=== PATIENT | female | born 1995 | race Caucasian/White ===

== ENCOUNTER 2017-01-26 09:37 | Emergency (ER) | payer OTHER ==
[~2017-01-26] VITALS: Ht 157.5 cm; Wt 85.0 kg
[~2017-01-26 09:37] MED LIST: CIPR500T4 PO; CYCL-319 PO; NAPR-260 PO; TAMS0.4C2 PO
[2017-01-26 09:39] VITALS: Ht 157.5 cm; Wt 85.0 kg
[2017-01-26 10:55] LABS: BASOPHIL # 0.1 10^3/ul (0.0-0.1); BASOPHILS % 0.4 % (0.0-2.0); EOSINOPHILS # 0.1 10^3/ul (0.0-0.5); EOSINOPHILS % 0.9 % (0.0-7.0); HEMATOCRIT 41.1 % (37.0-47.0); HEMOGLOBIN 13.5 g/dl (12.0-16.0); LYMPHOCYTES # 2.2 10^3/ul (0.8-2.9); LYMPHOCYTES % 18.7 % (18.0-55.0); MEAN CORPUSCULAR HEMOGLOBIN 27.6 pg (29.0-33.0); MEAN CORPUSCULAR HGB CONC 32.8 g/dl (32.0-37.0); MONOCYTE # 0.9 10^3/ul (0.3-0.9); MONOCYTES % 7.4 % (0.0-13.0); NEUTROPHIL # 8.4 10^3/ul (1.6-7.5); NEUTROPHILS % 72.2 % (30.0-74.0); PLATELET COUNT 266 10^3/UL (140-415); RED BLOOD COUNT 4.89 10^6/ul (4.20-5.40); RED CELL DISTRIBUTION WIDTH 13.2 % (11.5-14.5); WHITE BLOOD COUNT 11.6 10^3/ul (4.8-10.8)
[2017-01-26 10:59] LABS: ADD UMIC NO; UR ASCORBIC ACID NEGATIVE (NEGATIVE); UR BILIRUBIN (Dip) NEGATIVE (NEGATIVE); UR BLOOD (Dip) NEGATIVE (NEGATIVE); UR CLARITY CLEAR (CLEAR); UR COLOR YELLOW (YELLOW); UR GLUCOSE (Dip) NEGATIVE (NEGATIVE); UR KETONES (Dip) NEGATIVE (NEGATIVE); UR LEUKOCYTE ESTERASE (Dip) NEGATIVE Leu/ul (NEGATIVE); UR NITRITE (Dip) NEGATIVE (NEGATIVE); UR SPECIFIC GRAVITY (Dip) 1.024 (1.003-1.030); UR TOTAL PROTEIN (Dip) NEGATIVE (NEGATIVE); UR UROBILINOGEN (Dip) 1+ mg/dL (NEGATIVE)
--- NOTE | 2017-01-26 11:15 | RADRPT ---
PROCEDURE: XR Chest. CLINICAL INDICATION: Abdominal pain. TECHNIQUE: Single frontal view. COMPARISON: None. FINDINGS: The lungs are clear. The heart size is normal. There is no pleural effusion. There is no pneumothorax. IMPRESSION: 1. Normal chest radiograph. RPTAT: QQ .Jin Rivera MD, Date Time Electronically viewed and signed by .Jin Rivera MD, on 01/26/2017 11:15 .R/
[2017-01-26 11:25] LABS: ALBUMIN 4.2 g/dl (3.3-4.9); ALBUMIN/GLOBULIN RATIO 1.16; BILIRUBIN,INDIRECT 0.8 mg/dl (0-1.1); BILIRUBIN,TOTAL 0.8 mg/dl (0.2-1.3); CALCIUM 9.9 mg/dl (8.4-10.2); CREATININE 0.77 mg/dl (0.44-1.00); POTASSIUM 4.1 mmol/L (3.5-5.1); TOTAL PROTEIN 7.8 g/dl (6.1-8.1)
[2017-01-26] MEDS ORDERED: ONDANSETRON (ODT) 4 MG TAB ODT STA (11:44)
[2017-01-26] MEDS ORDERED: ONDA8TAB14 PO (11:46)
[2017-01-26] MEDS ORDERED: AZIT250T94 PO (11:46)
[2017-01-26] MEDS ORDERED: ACET500C5 PO (11:46)
--- NOTE | 2017-01-26 12:01 | ERD ---
ER Documentation Chief Complaint Chief Complaint Complains of cough colds and flu symptoms HPI This 21-year-old female presents with multiple complaints. She has had a sore throat congestion for last month. She is coughing as well. She also has intermittent vomiting nonbilious nonbloody. She denies abdominal pain except for intermittent occasional sharp pains but denies current pain. She is having bowel movements but has a history of constipation. She states that he she is lost more than 20 pounds over these last 2 months. She has frequent urination and feels dehydrated as well. ROS All systems reviewed and are negative except as per history of present illness. Medications Home Meds Active Scripts Azithromycin* (Zithromax*) 250 Mg Tablet, 250 MG PO .ZPACK DIRECTED, #6 TAB TAKE 500 MG (2 TABS) THE FIRST DAY THEN 250 MG (1 TAB) DAYS 2-5 Prov:LOGAN LUNDBERG MD 01/26/17 Acetaminophen* (Tylophen*) 500 Mg Capsule, 1 CAP PO Q6H Y for PAIN AND OR ELEVATED TEMP, #15 CAP Prov:LOGAN LUNDBERG MD 01/26/17 Ondansetron (Ondansetron Odt) 8 Mg Tab.rapdis, 8 MG PO Q6H Y for NAUSEA AND/OR VOMITING, #8 TAB Prov:LOGAN LUNDBERG MD 01/26/17 Ciprofloxacin Hcl* (Ciprofloxacin Hcl*) 500 Mg Tablet, 500 MG PO BID for 10 Days , TAB Prov:MELONIE ABBASI PA-C 06/03/15 Tamsulosin Hcl* (Tamsulosin Hcl*) 0.4 Mg Cap.er.24h, 0.4 MG PO DAILY, #30 CAP Prov:MELOINE ABBASI PA-C 06/03/15 Naproxen* (Naprosyn*) 500 Mg Tablet, 500 MG PO BID Y for PAIN AND/OR INFLAMMATION, #30 TAB Prov:GEORGE RYAN PA-C 04/03/15 Cyclobenzaprine Hcl* (Cyclobenzaprine Hcl*) 10 Mg Tablet, 10 MG PO TID, #20 TAB Prov:GEORGE RYAN PA-C 04/03/15 Allergies Allergies: Coded Allergies: No Known Allergy (Unverified , 01/07/14) PMhx/Soc History of Surgery: No Anesthesia Reaction: No Hx Neurological Disorder: No Hx Respiratory Disorders: No Hx Cardiac Disorders: No Hx Psychiatric Problems: No Hx Miscellaneous Medical Probl: No Hx Alcohol Use: No Hx Substance Use: No Hx Tobacco Use: No Physical Exam Vitals Vital Signs Date Time Temp Pulse Resp B/P Pulse Ox O2 Delivery O2 Flow Rate FiO2 01/26/17 09:39 98.0 92 20 122/74 99 Physical Exam Const: [], [id number]. Head: Atraumatic Eyes: Normal Conjunctiva ENT: Normal External Ears, Nose and Mouth. TMs normal. Slight postnasal drip. Neck: Full range of motion..~ No meningismus. Resp: Clear to auscultation bilaterally Cardio: Regular rate and rhythm, no murmurs Abd: Soft, non tender, non distended. Normal bowel sounds Skin: No petechiae or rashes Back: No midline or flank tenderness Ext: No cyanosis, or edema Neur: Awake and alert Psych: Normal Mood and Affect Result Diagram: 01/26/17 1030 01/26/17 1030 Results 24 hrs Laboratory Tests Test 01/26/17 10:30 White Blood Count 11.610^3/ul Red Blood Count 4.8910^6/ul Hemoglobin 13.5g/dl Hematocrit 41.1% Mean Corpuscular Volume 84.0fl Mean Corpuscular Hemoglobin 27.6pg Mean Corpuscular Hemoglobin Concent 32.8g/dl Red Cell Distribution Width 13.2% Platelet Count 12679^3/UL Mean Platelet Volume 11.0fl Neutrophils % 72.2% Lymphocytes % 18.7% Monocytes % 7.4% Eosinophils % 0.9% Basophils % 0.4% Nucleated Red Blood Cells % 0.0/100WBC Neutrophils # 8.410^3/ul Lymphocytes # 2.210^3/ul Monocytes # 0.910^3/ul Eosinophils # 0.110^3/ul Basophils # 0.110^3/ul Nucleated Red Blood Cells # 0.010^3/ul Urine Color YELLOW Urine Clarity CLEAR Urine pH 5.0 Urine Specific [place] 1.024 Urine Ketones NEGATIVEmg/dL Urine Nitrite NEGATIVEmg/dL Urine Bilirubin NEGATIVEmg/dL Urine Urobilinogen 1+mg/dL Urine Leukocyte Esterase NEGATIVELeu/ul Urine Hemoglobin NEGATIVEmg/dL Urine Glucose NEGATIVEmg/dL Urine Total Protein NEGATIVEmg/dl Sodium Level 143mmol/L Potassium Level 4.1mmol/L Chloride Level 107mmol/L Carbon Dioxide Level 25mmol/L Anion Gap 15 Blood Urea Nitrogen 16mg/dl Creatinine 0.77mg/dl Glucose Level 87mg/dl Calcium Level 9.9mg/dl Total Bilirubin 0.8mg/dl Direct Bilirubin 0.00mg/dl Indirect Bilirubin 0.8mg/dl Aspartate Amino Transf (AST/SGOT) 17IU/L Alanine Aminotransferase (ALT/SGPT) 25IU/L Alkaline Phosphatase 102IU/L Total Protein 7.8g/dl Albumin 4.2g/dl Globulin 3.60g/dl Albumin/Globulin Ratio 1.16 Lipase 59U/L Current Medications Medications (Trade) Dose Ordered Sig/Mariah Route PRN Reason Start Time Stop Time Status Last Admin Dose Admin Ondansetron HCl (Zofran Odt) 8 mg ONCE STAT ODT 01/26/17 11:44 01/26/17 11:45 DC 01/26/17 11:55 Procedures/MDM Patient's last visit was 2015 it does show approximately 20 pound decrease in weight. Patient presents with multiple complaints of uncertain etiology. Chest X-ray 1V Interpreted by me: Soft Tissue: No acute abnormalities Bones: No acute abnormalities Mediastinum/Cardiac Silhouette/Lungs: [No acute abnormalities]. Impression - normal 1 view chest x-ray CBC and CMP and urine are normal. HCG is negative. Patient was stable throughout the ED course. Patient presents with URI symptoms for the last month and weight loss. Is it is uncertain how recent this weight loss is as her last visit here was 2015. Patient shows no signs or symptoms to suggest acute abdomen, ketoacidosis, diabetes, any hematologic or electrolyte abnormality. She has no signs or symptoms to suggest acute illness. Given the duration of URI symptoms and congestion she will treated for sinusitis with Zithromax, Zofran for nausea and Tylenol and primary care follow-up and return precautions and further observation at home. The patient was stable with no new complaints during the ER course. Clinically, there is no current evidence to suggest meningitis, sepsis, acute abdomen, pneumonia, acute coronary syndrome , pulmonary embolism, or any other emergent condition appearing to require further evaluation or hospitalization. The patient should certainly return for any new or worsening symptoms per the aftercare instructions. They should otherwise follow-up with her primary care doctor for reevaluation this week. Departure Diagnosis: Primary Impression: Vomiting Vomiting type: unspecified Vomiting Intractability: unspecified Nausea presence: unspecified Qualified Code: R11.10 - Vomiting, intractability of vomiting not specified, presence of nausea not specified, unspecified vomiting type Additional Impression: Upper respiratory infection URI type: unspecified URI Qualified Code: J06.9 - Upper respiratory tract infection, unspecified type Condition: Stable Patient Instructions: Sinusitis, Abx Tx, Vomiting (6Y-Adult), Symptoms With Uncertain Cause Additional Instructions: All examinations normal today. Uncertain cause of symptoms. Continue to observe at home for new symptoms. We will treat for possible sinus flexion given duration of symptoms. Follow-up with primary doctor or return to the ER for new or worsening symptoms. LOGAN LUNDBERG MD Jan 26, 2017 12:01
[2017-01-26 13:01] VITALS: BP 116/68; PULSE 84; RESP 18; TEMP 97.2
== END 2017-01-26 13:02 | disposition home or self-care (01) ==
LOC: FTE 09:37
DX: J06.9 Acute upper respiratory infection, unspecified (principal); R11.10 Vomiting, unspecified
CPT/HCPCS: 36415; 71010; 80053; 81003; 83690; 85025; Z7502; Z7610

== ENCOUNTER 2017-07-05 19:51 | Emergency (ER) | END 2017-07-06 00:47 | disposition home or self-care (01) ==